=== PATIENT | female | born 1990 | race Caucasian/White ===

== ENCOUNTER 2018-03-13 07:18 | Inpatient (IN) | payer BC ==
[2018-03-13] MEDS ORDERED: SODIUM CHLORIDE 0.9% FLUSH 10 ML SOL IV PRN (09:40)
[2018-03-13] MEDS ORDERED: METHYLERGONOVINE MALEATE 0.2 MG/ML SOL IM PRN (09:40)
[2018-03-13] MEDS ORDERED: CARBOPROST 250 MCG/ML SOL IM PRN (09:40)
[2018-03-13] MEDS ORDERED: LACTATED RINGERS 1,000 ML IV PRN (09:40)
[2018-03-13] MEDS ORDERED: OXYTOCIN 10000 MU/ML SOL IM PRN (09:40)
[2018-03-13] MEDS ORDERED: MEPIVACAINE HCL 1% MPF 30 ML/VIAL SOL INFIL PRN (09:40)
[2018-03-13] MEDS ORDERED: FENTANYL 100MCG/2ML SOL IV PRN (09:40)
[2018-03-13] MEDS ORDERED: NALOXONE HYDROCHLORIDE 0.4 MG/ML SOL IV PRN (14:18)
[2018-03-13] MEDS ORDERED: NALBUPHINE HCL 20 MG/ML SOL IV PRN (14:18)
[2018-03-13] MEDS ORDERED: DIPHENHYDRAMINE 50 MG/ML SOL IV PRN (14:18)
[2018-03-13] MEDS ORDERED: EPHEDRINE SULFATE 50 MG/ML SOL IV PRN (14:18)
[2018-03-13] MEDS ORDERED: LACTATED RINGERS 1,000 ML IV SCH (14:30)
[2018-03-13] MEDS: LACTATED RINGERS 1,000 ML IV SCH ×2 (15:03→15:29)
[2018-03-13] MEDS: SODIUM CHLORIDE 0.9% FLUSH 10 ML SOL IV SCH ×2 (15:03→19:42)
[2018-03-13 15:28] LABS: BASOPHILS % (AUTO) 0 % (0-3); EOSINOPHILS % (AUTO) 0 % (0-9); HEMATOCRIT 40 % (35-47); HEMOGLOBIN 13.7 gm/dl (12.0-15.5); LYMPHOCYTES % (AUTO) 6.9 % (10-50); MEAN CORPUSCULAR HEMOGLOBIN 31.3 pg (27.0-32.0); MEAN CORPUSCULAR HGB CONC 33.9 gm/dl (32.0-36.0); MEAN CORPUSCULAR VOLUME 92 fL (81-99); MONOCYTES % (AUTO) 5.6 % (0-12); NEUTROPHILS % (AUTO) 87.1 % (37-80)
[2018-03-13] MEDS ORDERED: MORPHINE SULFATE 0.5 MG/ML SOL ONE (15:30)
[2018-03-13] MEDS ORDERED: BUPIVACAINE HCL IN DEXTROSE/PF 2 ML AMPUL IJ ONE (15:30)
[2018-03-13] MEDS ORDERED: METHYLERGONOVINE MALEATE 0.2 MG TAB PO PRN (19:10)
[2018-03-13] MEDS ORDERED: TEMAZEPAM 15MG 15 MG CAP PO PRN (19:10)
[2018-03-13] MEDS ORDERED: BISACODYL 10 MG SUP PR PRN (19:10)
[2018-03-13] MEDS ORDERED: WITCH HAZEL 1 EA PAD TOP PRN (19:10)
[2018-03-13] MEDS ORDERED: BENZOCAINE/MENTHOL 1 SPR TOP PRN (19:10)
[2018-03-13] MEDS ORDERED: APAP/HYDROCODONE 1 EACH TABLET PO PRN (19:10)
[2018-03-13] MEDS ORDERED: FLEET ENEMA PR PRN (19:10)
[2018-03-13] MEDS ORDERED: LACTATED RINGERS 1,000 ML IV ONE ×2 (19:28→23:23)
[2018-03-13 19:48] LABS: HEMATOCRIT 32 % (35-47); HEMOGLOBIN 11.1 gm/dl (12.0-15.5); MEAN CORPUSCULAR HEMOGLOBIN 32.1 pg (27.0-32.0); MEAN CORPUSCULAR HGB CONC 34.8 gm/dl (32.0-36.0); MEAN CORPUSCULAR VOLUME 92 fL (81-99)
[2018-03-13 20:11] LABS: ANISOCYTOSIS SLIGHT; BAND NEUTROPHILS % (MANUAL) 1 %; BASOPHILS % (MANUAL) 0 % (0-3); EOSINOPHILS % (MANUAL) 0 % (0-9); LYMPHOCYTES % (MANUAL) 3 % (10-50); MONOCYTES % (MANUAL) 6 % (0-12); NEUTROPHILS % (MANUAL) 90 % (37-80)
[2018-03-13] MEDS: IBUPROFEN 600 MG TAB PO PRN (22:19)
[2018-03-13] MEDS: DOCUSATE SODIUM 100 MG SGL PO SCH (22:20)
[2018-03-14 07:39] LABS: BASOPHILS % (AUTO) 0 % (0-3); EOSINOPHILS % (AUTO) 0 % (0-9); HEMATOCRIT 24 % (35-47); HEMOGLOBIN 8.4 gm/dl (12.0-15.5); LYMPHOCYTES % (AUTO) 11.9 % (10-50); MEAN CORPUSCULAR HGB CONC 34.5 gm/dl (32.0-36.0); MEAN CORPUSCULAR VOLUME 93 fL (81-99); MONOCYTES % (AUTO) 8.6 % (0-12)
[2018-03-14] MEDS ORDERED: LEVOTHYROXINE SODIUM 50 MCG TAB ONE (07:52)
[2018-03-14] MEDS: LEVOTHYROXINE SODIUM 50 MCG TAB PO SCH (08:06)
[2018-03-14] MEDS: DOCUSATE SODIUM 100 MG SGL PO SCH ×2 (08:07→21:12)
[2018-03-14] MEDS: FOLIC ACID 1 MG TAB PO SCH (08:07)
[2018-03-14] MEDS: MULTIVITAMIN2 1 EA TAB PO SCH (08:07)
[2018-03-14 10:02] LABS: APPEARANCE,URINE Clear; BILIRUBIN,URINE NEGATIVE (NEGATIVE); COLOR,URINE Light yellow; GLUCOSE, URINE (UA) NEGATIVE (NEGATIVE); KETONES,URINE 1+ (NEGATIVE); LEUKOCYTE ESTERASE ,URINE NEGATIVE (NEGATIVE); NITRATE,URINE NEGATIVE (NEGATIVE); OCCULT BLOOD,URINE TRACE LYSED (NEG-TRACE); UROBILINOGEN,URINE 0.2 (0.2-1.0 EU)
[2018-03-14] MEDS ORDERED: FERROUS GLUCONATE 324 MG TABLET ONE (10:02)
[2018-03-14] MEDS ORDERED: ASCORBIC ACID 500 MG TAB ONE ×2 (10:03→20:18)
[2018-03-14] MEDS: ASCORBIC ACID 500 MG TAB PO SCH ×2 (10:05→21:12)
[2018-03-14] MEDS: FERROUS GLUCONATE 324 MG TABLET PO SCH ×2 (10:05→21:12)
[2018-03-14] MEDS: SODIUM CHLORIDE 0.9% FLUSH 10 ML SOL IV SCH ×2 (10:06→18:32)
[2018-03-14 10:12] LABS: BACTERIA TRACE (< 1+); CRYSTALS NEGATIVE (0-3 AVE/HPF); EPITHELIAL CELLS 0-1 (SQUAMOUS); RBC,URINE 0-1 (0-3AV/HPF); WBC,URINE 0-1 (0-5AV/HPF)
[2018-03-14] MEDS ORDERED: SODIUM CHLORIDE 0.9% FLUSH 10 ML SOL IV PRN (12:09)
[2018-03-14 15:53] LABS: ABO A; RH TYPE Positive
[2018-03-14 15:54] LABS: ANTIBODY SCREEN Positive
[2018-03-14] MEDS: IBUPROFEN 600 MG TAB PO PRN (21:12)
[2018-03-14 22:33] LABS: UNIT TYPE A POSITIVE
[2018-03-14] MEDS: SODIUM CHLORIDE 0.9% 1000ML 1,000 ML IV SCH (23:50)
[2018-03-15] MEDS: SODIUM CHLORIDE 0.9% FLUSH 10 ML SOL IV SCH ×3 (06:04→18:25)
[2018-03-15] MEDS: SODIUM CHLORIDE 0.9% 1000ML 1,000 ML IV SCH (06:05)
[2018-03-15] MEDS ORDERED: LEVOTHYROXINE SODIUM 50 MCG TAB ONE (07:20)
[2018-03-15] MEDS: LEVOTHYROXINE SODIUM 50 MCG TAB PO SCH (07:22)
[2018-03-15 07:43] LABS: BASOPHILS % (AUTO) 0 % (0-3); EOSINOPHILS % (AUTO) 1 % (0-9); HEMATOCRIT 25 % (35-47); LYMPHOCYTES % (AUTO) 16.9 % (10-50); MEAN CORPUSCULAR HEMOGLOBIN 31.3 pg (27.0-32.0); MEAN CORPUSCULAR HGB CONC 32.5 gm/dl (32.0-36.0); MEAN CORPUSCULAR VOLUME 96 fL (81-99); MONOCYTES % (AUTO) 6.7 % (0-12); NEUTROPHILS % (AUTO) 74.8 % (37-80)
[2018-03-15] MEDS ORDERED: ASCORBIC ACID 500 MG TAB ONE ×2 (09:01→21:14)
[2018-03-15] MEDS: MULTIVITAMIN2 1 EA TAB PO SCH (09:03)
[2018-03-15] MEDS: IBUPROFEN 600 MG TAB PO PRN ×2 (09:03→19:50)
[2018-03-15] MEDS: ASCORBIC ACID 500 MG TAB PO SCH ×2 (09:03→21:17)
[2018-03-15] MEDS: DOCUSATE SODIUM 100 MG SGL PO SCH ×2 (09:03→21:17)
[2018-03-15] MEDS: FOLIC ACID 1 MG TAB PO SCH (09:03)
[2018-03-15] MEDS: FERROUS GLUCONATE 324 MG TABLET PO SCH ×2 (09:04→21:17)
[2018-03-16] MEDS: SODIUM CHLORIDE 0.9% FLUSH 10 ML SOL IV SCH ×2 (02:24→10:50)
[2018-03-16] MEDS ORDERED: LEVOTHYROXINE SODIUM 50 MCG TAB ONE (06:53)
[2018-03-16] MEDS: LEVOTHYROXINE SODIUM 50 MCG TAB PO SCH (06:57)
[2018-03-16 07:31] LABS: BASOPHILS % (AUTO) 1 % (0-3); EOSINOPHILS % (AUTO) 3 % (0-9); HEMATOCRIT 24 % (35-47); HEMOGLOBIN 7.9 gm/dl (12.0-15.5); LYMPHOCYTES % (AUTO) 16.5 % (10-50); MEAN CORPUSCULAR HEMOGLOBIN 31.6 pg (27.0-32.0); MEAN CORPUSCULAR HGB CONC 33.2 gm/dl (32.0-36.0); MEAN CORPUSCULAR VOLUME 95 fL (81-99); MONOCYTES % (AUTO) 6.6 % (0-12); NEUTROPHILS % (AUTO) 73.4 % (37-80)
[2018-03-16] MEDS ORDERED: ASCORBIC ACID 500 MG TAB ONE (08:39)
[2018-03-16] MEDS: ASCORBIC ACID 500 MG TAB PO SCH (08:41)
[2018-03-16] MEDS: FOLIC ACID 1 MG TAB PO SCH (08:41)
[2018-03-16] MEDS: FERROUS GLUCONATE 324 MG TABLET PO SCH (08:41)
[2018-03-16] MEDS: DOCUSATE SODIUM 100 MG SGL PO SCH (08:41)
[2018-03-16] MEDS: MULTIVITAMIN2 1 EA TAB PO SCH (08:41)
[2018-03-16 10:14] LABS: UNIT TYPE A POSITIVE
[2018-03-16] MEDS ORDERED: SODIUM CHLORIDE 0.9% 250 ML 250 ML IV SCH (10:50)
[2018-03-16 14:34] LABS: UNIT TYPE A POSITIVE
[2018-03-16 17:02] VITALS: BP 120/77; PULSE 113; RESP 16; TEMP 98.1; O2SAT 98
[2018-03-16] MEDS: IBUPROFEN 600 MG TAB PO PRN (17:03)
== END 2018-03-16 20:30 | disposition home or self-care (01) | DRG 560 ==
LOC: OBSVTOIN 07:18 → OB 07:18
PROVIDERS: ADMIT Family Medicine; ATTEND Family Medicine
PROC: 10E0XZZ Delivery of Products of Conception, External Approach (ICD-10-PCS; principal; 2018-03-13)
PROC: 10907ZC Drainage of Amniotic Fluid, Therapeutic from Products of Conception, Via Natural or Artificial Opening (ICD-10-PCS; 2018-03-13)
PROC: 0KQM0ZZ Repair Perineum Muscle, Open Approach (ICD-10-PCS; 2018-03-13)
PROC: 6A550ZT Pheresis of Cord Blood Stem Cells, Single (ICD-10-PCS; 2018-03-13)
DX: O80 Encounter for full-term uncomplicated delivery (principal); R00.0 Tachycardia, unspecified; R06.02 Shortness of breath; Z37.0 Single live birth; Z3A.39 39 weeks gestation of pregnancy; O72.1 Other immediate postpartum hemorrhage; O90.81 Anemia of the puerperium; R33.9 Retention of urine, unspecified
CPT/HCPCS: 36415; 59025; 81001; 85007; 85018; 85025; 85027; 86850; 86900; 86901; 86922; 99070; J0670; J2274; J2590; J3010; A9270-GY